=== PATIENT | female | born 1935 | race Caucasian/White ===

== ENCOUNTER 2021-03-19 19:01 | Emergency (ER) | payer OTHER ==
[2021-03-19 19:10] VITALS: TEMP 98.3; BMI 22.8
[2021-03-19 21:58] VITALS: BP 150/72; PULSE 88
== END 2021-03-19 21:57 | disposition home or self-care (01) ==
LOC: JER 19:01
DX: R51.9 Headache, unspecified (principal)
CPT/HCPCS: 70450-TC; 72125-TC; 99284-25